=== PATIENT | male | born 1985 | race Caucasian/White ===

== ENCOUNTER → 2020-10-20 | Outpatient (CLI) | payer BC ==
[2020-10-20 13:18] LABS: Anion Gap 4 mmol/L (6-16); Blood Urea Nitrogen 7 mg/dL (8-24); Bun/Creatinine Ratio 8.2 (12.0-20.0); CO2, Blood 29 mmol/L (21-32); Calcium, Blood 8.5 mg/dL (8.5-10.1); Chloride, Blood 106 mmol/L (98-108); Creatinine, Blood 0.85 mg/dL (0.60-1.20); Glomerular Filtration Rate >60 (60-); Glucose, Blood 95 mg/dL (70-99); Potassium, Blood 3.4 mmol/L (3.5-5.5); Sodium, Blood 139 mmol/L (136-145)
== END | disposition home or self-care (01) ==
LOC: LAB SHORT 07:23 → LAB 07:23 → LAB FUT 09-30 12:20
PROVIDERS: Physician Assistant
DX: E87.1 Hypo-osmolality and hyponatremia (principal)
CPT/HCPCS: 36415; 80048

== ENCOUNTER 2021-09-07 00:33 | Day surgery (SDC) | payer BC ==
[~2021-09-07] VITALS: Wt 62.3 kg
[2021-09-07] MEDS ORDERED: INFLECTRA100 MG IV (14:33)
== END 2021-09-07 16:47 | disposition home or self-care (01) ==
LOC: ATC 00:33
DX: K50.90 Crohn's disease, unspecified, without complications (principal); Z87.891 Personal history of nicotine dependence
CPT/HCPCS: 96413; 96415

== ENCOUNTER 2021-11-28 07:52 | Day surgery (SDC) | payer OTHER ==
[~2021-11-28 07:52] MED LIST: INFLECTRA100 MG IV
[2021-11-28] MEDS ORDERED: BUDESONIDE EC3 M1 PO (10:05)
== END 2021-11-28 12:08 | disposition home or self-care (01) ==
LOC: ATC 07:52
DX: K50.90 Crohn's disease, unspecified, without complications (principal); Z79.899 Other long term (current) drug therapy
CPT/HCPCS: 96413; 96415; J7050; Q5103

== ENCOUNTER 2022-01-09 12:41 | Day surgery (SDC) | payer OTHER ==
[~2022-01-09] VITALS: Wt 60.0 kg
[~2022-01-09 12:41] MED LIST changes: +BUDESONIDE EC3 M1 PO
== END 2022-01-09 15:30 | disposition home or self-care (01) ==
LOC: ATC 12:41
DX: K50.90 Crohn's disease, unspecified, without complications (principal); Z79.899 Other long term (current) drug therapy; F17.210 Nicotine dependence, cigarettes, uncomplicated
CPT/HCPCS: 96413; 96415; J7050; Q5103

== ENCOUNTER 2022-03-06 02:20 | Day surgery (SDC) | payer OTHER ==
[~2022-03-06] VITALS: Wt 63.5 kg
== END 2022-03-06 12:00 | disposition home or self-care (01) ==
LOC: ATC 02:20
DX: K50.90 Crohn's disease, unspecified, without complications (principal); Z79.899 Other long term (current) drug therapy
CPT/HCPCS: J7050; Q5103

== ENCOUNTER 2022-05-08 03:34 | Day surgery (SDC) | payer OTHER ==
[~2022-05-08] VITALS: Wt 62.0 kg
== END 2022-05-08 11:29 | disposition home or self-care (01) ==
LOC: ATC 03:34
DX: K50.90 Crohn's disease, unspecified, without complications (principal); Z79.899 Other long term (current) drug therapy
CPT/HCPCS: 96413; 96415

== ENCOUNTER 2022-07-03 08:27 | Day surgery (SDC) | payer OTHER | END 2022-07-03 10:57 | disposition home or self-care (01) | LOC: ATC 08:27 | DX: K50.90 Crohn's disease, unspecified, without complications (principal); Z79.899 Other long term (current) drug therapy | CPT/HCPCS: A9270; J2920; J7050; Q5103 ==